=== PATIENT | female | born 1975 | race Caucasian/White ===

== ENCOUNTER 2021-01-26 12:14 | Emergency (ER) | payer OTHER, MEDICARE ==
[~2021-01-26] VITALS: Ht 157 cm; Wt 90.0 kg
[2021-01-26] MEDS ORDERED: METH-732 PO (12:28)
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
[2021-01-26] MEDS ORDERED: TETANUS,DIPTH,PERTUSS P/F (BOOSTRIX) 0.5 ML VIAL IM ONE (12:45)
[2021-01-26 14:51] VITALS: BP 125/81
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
== END 2021-01-26 14:51 | disposition home or self-care (01) ==
LOC: ER 12:14 → EDUNIT# 12:20 → ER 14:51
DX: S16.1XXA Strain of muscle, fascia and tendon at neck level, initial encounter (principal); Z23 Encounter for immunization; V89.2XXA Person injured in unspecified motor-vehicle accident, traffic, initial encounter
CPT/HCPCS: 70450; 71046; 72125; 73030; 73552; 84703; 90715

== ENCOUNTER 2021-10-13 13:21 | Inpatient (IN) | payer MEDICARE ==
[~2021-10-13] VITALS: Ht 157.5 cm; Wt 94.0 kg
[~2021-10-13 13:21] MED LIST: METH-732 PO
[2021-10-13] MEDS ORDERED: morphine INJ 10 MG/ML 1ML (SYR OR VIAL) IVP STA ×2 (13:43→14:18)
[2021-10-13] MEDS ORDERED: ONDANSETRON 4 MG/2 ML (SDV) Z0FRAN IVP ONE (13:45)
[2021-10-13] MEDS ORDERED: NS IV 1000 ML 1,000 ML IV SCH ×2 (13:45→16:30)
--- NOTE | 2021-10-13 13:47 | ED Abdominal Pain ---
General Chief Complaint: Abdominal/GI Problems Stated Complaint: STOMACH PAIN Nursing Triage Note: ARRIVED VIA AMB TO ROOM 03 WITH COMPLAINTS OF SUDDEN RIGHT LOWER ABD PAIN. PT MOANING. Source of Information: Patient Exam Limitations: No Limitations History of Present Illness Date Seen by Provider: Oct 13, 2021 Time Seen by Provider: 13:30 Initial Comments Patient is a 45-year-old female who presents to the emergency department today w ith a chief complaint of right mid abdominal pain. Onset suddenly at around 10 AM this morning. She states that it causes nausea and vomiting. She has not been able to hold anything down since the onset of pain. She did have 2 bowel movements today. Nonblack nonbloody. She has had previous cholecystectomy as well as hernia repair. She denies fevers or chills. No chest pain or shortness of breath. Nothing makes the pain any better movement makes the pain much worse. She denies dysuria, urgency or frequency. No abnormal vaginal discharge. Last menstrual cycle was August 13. She has known irregular cycles. She has not taken anything for the pain. Past medical history significant for hypercholesterolemia, GERD, thyroid disorder. All other review of systems reviewed and negative except as stated Timing/Duration: 1-3 Hours Severity/Quality: Severe, Sharp, Stabbing Location: RLQ Radiation: No Radiation Activities at Onset: None Modifying Factors: Worsens With Movement Associated Symptoms: Nausea/Vomiting, Swelling/Mass in Abdomen Allergies and Home Medications Allergies Coded Allergies: Sulfa (Sulfonamide Antibiotics) (Verified Allergy, Unknown, 01/26/21) lamotrigine (Verified Allergy, Unknown, 01/26/21) Patient Home Medication List Home Medication List Reviewed: Yes Methocarbamol (Methocarbamol) 750 Mg Tablet, 750 MG PO Q6-8HR PRN for PAIN- MODERATE (5-7) Prescribed by: GREG SHAW on 01/26/21 1228 Review of Systems Review of Systems Constitutional: see HPI EENTM: No Symptoms Reported Respiratory: No Symptoms Reported Cardiovascular: No Symptoms Reported Gastrointestinal: Abdomen Distended, Abdominal Pain; Denies Blood Streaked Stools; Nausea, Vomiting Genitourinary: No Symptoms Reported; Denies Burning, Denies Discharge, Denies Frequency, Denies Pain Musculoskeletal: no symptoms reported Skin: no symptoms reported Psychiatric/Neurological: No Symptoms Reported All Other Systems Reviewed Negative Unless Noted: Yes Past Xhxoxce-Igefnl-Ojnvsy Hx Patient Social History Smoking Status: Never a Smoker Substance use?: No Alcohol Use?: No Physical Exam Vital Signs Vital Signs - First Documented 10/13/21 13:21 Temp 36.3 Pulse 87 Resp 16 B/P (MAP) 139/86 (103) Capillary Refill : Less Than 3 Seconds Height/Weight/BMI Height: '" Weight: lbs. oz. kg; 36.00 BMI Method: General Appearance: WD/WN, moderate distress HEENT: PERRL/EOMI Neck: full range of motion Respiratory: lungs clear, normal breath sounds, no respiratory distress, no accessory muscle use Cardiovascular: regular rate, rhythm Gastrointestinal: soft, other (Patient has firm palpable mass approximately 10 cm in the right mid lower abdomen. Very very tender to palpation. I cannot hear bowel sounds when I auscultate over it. Rest of her abdomen is soft, bowel sounds are hypoactive. No rebound) Extremities: normal range of motion, non-tender, normal inspection, no pedal edema Back: CVA tenderness (R), CVA tenderness (L) Neurologic/Psychiatric: no motor/sensory deficits, alert, normal mood/affect, oriented x 3, other (anxious) Skin: normal color, warm/dry Focused Exam Lactate Level 10/13/21 14:20: Lactic Acid Level 5.29*H Lactic Acid Level Laboratory Tests Test 10/13/21 14:20 Lactic Acid Level 5.29 MMOL/L (0.50-2.00) *H Progress/Results/Core Measures Results/Orders Lab Results Laboratory Tests Test 10/13/21 13:30 10/13/21 14:20 Range/Units White Blood Count 15.9 H 4.3-11.0 10^3/uL Red Blood Count 5.32 H 3.80-5.11 10^6/uL Hemoglobin 16.4 H 11.5-16.0 g/dL Hematocrit 47 35-52 % Mean Corpuscular Volume 89 80-99 fL Mean Corpuscular Hemoglobin 31 25-34 pg Mean Corpuscular Hemoglobin Concent 35 32-36 g/dL Red Cell Distribution Width 12.3 10.0-14.5 % Platelet Count 318 130-400 10^3/uL Mean Platelet Volume 9.0 9.0-12.2 fL Immature Granulocyte % (Auto) 1 % Neutrophils (%) (Auto) 74 42-75 % Lymphocytes (%) (Auto) 17 12-44 % Monocytes (%) (Auto) 7 0-12 % Eosinophils (%) (Auto) 1 0-10 % Basophils (%) (Auto) 1 0-10 % Neutrophils # (Auto) 11.8 H 1.8-7.8 10^3/uL Lymphocytes # (Auto) 2.7 1.0-4.0 10^3/uL Monocytes # (Auto) 1.0 0.0-1.0 10^3/uL Eosinophils # (Auto) 0.1 0.0-0.3 10^3/uL Basophils # (Auto) 0.1 0.0-0.1 10^3/uL Immature Granulocyte # (Auto) 0.2 H 0.0-0.1 10^3/uL Neutrophils % (Manual) 78 % Lymphocytes % (Manual) 14 % Monocytes % (Manual) 8 % Eosinophils % (Manual) 0 % Basophils % (Manual) 0 % Band Neutrophils 0 % Blood Morphology Comment NORMAL Sodium Level 139 135-145 MMOL/L Potassium Level 3.4 L 3.6-5.0 MMOL/L Chloride Level 99 98-107 MMOL/L Carbon Dioxide Level 19 L 21-32 MMOL/L Anion Gap 21 H 5-14 MMOL/L Blood Urea Nitrogen 17 7-18 MG/DL Creatinine 0.75 0.60-1.30 MG/DL Estimat Glomerular Filtration Rate 101 BUN/Creatinine Ratio 23 Glucose Level 154 H 70-105 MG/DL Calcium Level 9.6 8.5-10.1 MG/DL Corrected Calcium 9.4 8.5-10.1 MG/DL Total Bilirubin 0.5 0.1-1.0 MG/DL Aspartate Amino Transf (AST/SGOT) 36 H 5-34 U/L Alanine Aminotransferase (ALT/SGPT) 77 H 0-55 U/L Alkaline Phosphatase 164 H 40-136 U/L Total Protein 7.7 6.4-8.2 GM/DL Albumin 4.2 3.2-4.5 GM/DL Serum Test, Qualitative NEGATIVE NEGATIVE Lactic Acid Level 5.29 *H 0.50-2.00 MMOL/L My Orders Orders - PACO BURK MD Ed Iv/Invasive Line Start (10/13/21 13:43) Cbc With Automated Diff (10/13/21 13:43) Comprehensive Metabolic Panel (10/13/21 13:43) Hcg,Qualitative Serum (10/13/21 13:43) Ns Iv 1000 Ml (Sodium Chloride 0.9%) (10/13/21 13:45) Morphine Injection (Morphine Injection (10/13/21 13:43) Ondansetron Injection (Zofran Injectio (10/13/21 13:45) Ct Abdomen/Pelvis W (10/13/21 13:43) Iohexol Injection (Omnipaque 350 Mg/Ml 1 (10/13/21 14:00) Received Contrast (Hold Metformin- Contr (10/13/21 14:00) Ns (Ivpb) (Sodium Chloride 0.9% Ivpb Bag (10/13/21 14:00) Lactic Acid Analyzer (10/13/21 13:51) Manual Differential (10/13/21 13:30) Morphine Injection (Morphine Injection (10/13/21 14:18) Medications Given in ED Current Medications Medications Dose Ordered Sig/Angelo Route Start Time Stop Time Status Last Admin Dose Admin Iohexol 100 ml ONCE ONCE IV 10/13/21 14:00 10/13/21 14:01 DC 10/13/21 14:42 100 ML Ondansetron HCl 8 mg ONCE ONCE IVP 10/13/21 13:45 10/13/21 13:46 DC 10/13/21 13:51 8 MG Sodium Chloride 100 ml ONCE ONCE IV 10/13/21 14:00 10/13/21 14:01 DC 10/13/21 14:43 80 ML Vital Signs/I&O 10/13/21 13:21 Temp 36.3 Pulse 87 Resp 16 B/P (MAP) 139/86 (103) Blood Pressure Mean: 103 Progress Progress Note #1: Time: 16:34 Progress Note Case was discussed with both Dr. PACHECO and Dr. Pereyra at Dr. PACHECO's request. Dr. PACHECO stated he would admit with medicine as a consult. Patient has been given several doses of IV morphine. She is also being given Zofran. She was able to tolerate and hold down her oral contrast. IV fluids have been running. I believe her lactic acid is elevated not secondary to sepsis but secondary to potential bowel ischemia. Antibiotics have been ordered. On reevaluation the patient is sitting up, still has pain in the right mid abdomen but it is not as intense as at presentation. She is not tachycardic, she is not hypotensive. We will admit her at Dr. Pereyra's request to the ICU overnight Progress Note #2: Time: 17:34 Progress Note Notified by Dr. Pereyra that the patient is a [facility] patient. I then called Dr. Jacques on for [facility] and advised her of the patient's condition and findings. She will see her. Patient at this time is already in the ICU Departure Communication (Admissions) Time/Spoke to Admitting Phy: 15:[address] pacheco Time/Spoke to Consulting Phy: 16:[address] Pereyra - would prefer NPO status; Admit overnight to ICU Impression Primary Impression: Incarcerated hernia of abdominal cavity Disposition: ADMITTED INPATIENT Condition: Stable Admissions Decision to Admit Reason: Admit from ER (General) Decision to Admit/Date: Oct 13, 2021 Time/Decision to Admit Time: 16:34 Departure-Patient Inst. Referrals: [facility] ([place]) Primary Care Physician PACO BURK MD Oct 13, 2021 13:47
[2021-10-13 13:50] LABS: BASOPHILS # (AUTO) 0.1 10^3/uL (0.0-0.1); BASOPHILS % (AUTO) 1 % (0-10); EOSINOPHILS # (AUTO) 0.1 10^3/uL (0.0-0.3); EOSINOPHILS % (AUTO) 1 % (0-10); HEMATOCRIT 47 % (35-52); HEMOGLOBIN 16.4 g/dL (11.5-16.0); LYMPHOCYTES # (AUTO) 2.7 10^3/uL (1.0-4.0); LYMPHOCYTES % (AUTO) 17 % (12-44); MEAN CORPUSCULAR HEMOGLOBIN 31 pg (25-34); MEAN CORPUSCULAR HGB CONC 35 g/dL (32-36); MEAN CORPUSCULAR VOLUME 89 fL (80-99); MONOCYTES % (AUTO) 7 % (0-12); NEUTROPHILS # (AUTO) 11.8 10^3/uL (1.8-7.8); NEUTROPHILS % (AUTO) 74 % (42-75); PLATELET COUNT 318 10^3/uL (130-400); WHITE BLOOD COUNT 15.9 10^3/uL (4.3-11.0)
[2021-10-13] MEDS ORDERED: IOHEXOL 350 MG/ML 100 ML (OMNIPAQUE 350) VIAL IV ONE (14:00)
[2021-10-13] MEDS ORDERED: NS 100 ML (IVPB) BAG IV ONE (14:00)
[2021-10-13] MEDS ORDERED: HOLD METFORMIN - RECEIVED CONTRAST 20 ML VIAL IV SCH (14:00)
[2021-10-13 14:05] LABS: ALBUMIN 4.2 GM/DL (3.2-4.5); BILIRUBIN,TOTAL 0.5 MG/DL (0.1-1.0); CALCIUM 9.6 MG/DL (8.5-10.1); CREATININE SERUM 0.75 MG/DL (0.60-1.30); POTASSIUM 3.4 MMOL/L (3.6-5.0); TOTAL PROTEIN 7.7 GM/DL (6.4-8.2)
[2021-10-13 14:15] LABS: NEUTROPHILS % (MANUAL) 78 %
[2021-10-13 14:16] LABS: BAND NEUTROPHILS 0 %; BASOPHILS % (MANUAL) 0 %; EOSINOPHILS % (MANUAL) 0 %; LYMPHOCYTES % (MANUAL) 14 %; MONOCYTES % (MANUAL) 8 %; RBC MORPH NORMAL
--- NOTE | 2021-10-13 14:59 | Diagnostic Imaging Report ---
EXAMINATION: CT abdomen and pelvis with intravenous contrast. TECHNIQUE: Multiple contiguous axial images were obtained through the abdomen and pelvis after the uneventful administration of intravenous contrast. All CT scans use one or more of the following dose optimizing techniques: automated exposure control, MA and/or KvP adjustment based on patient size and exam type or iterative reconstruction. HISTORY: Severe abdominal pain COMPARISON: None available. FINDINGS: Limited views of the lower thorax are unremarkable. Liver is steatotic. No focal liver lesions are seen. There is no biliary ductal dilation. Gallbladder is absent. Pancreas is normal. Spleen is normal. Adrenal glands are normal. The kidneys are normal. There is no hydronephrosis. Urinary bladder is normal. There is a bowel containing ventral abdominal hernia with stranding of herniated fat concerning for strangulation. There is mildly dilated upstream bowel and decompression of the distal bowel. No free fluid or air. No abdominal or pelvic lymphadenopathy. Aorta is normal in caliber without aneurysm. There are no suspicious osseus lesions. IMPRESSION: 1. Ventral abdominal hernia containing bowel with stranding in the hernia sac concerning for strangulation. There is also mild dilation of the upstream bowel concerning for developing obstruction. Dictated by: Dictated on workstation # [id number]
[2021-10-13] MEDS ORDERED: PIPERACILLIN SODIUM/TAZOBACTAM 4.5 GM in NS (IVPB) 100 ML IV ONE (16:15)
--- NOTE | 2021-10-13 17:03 | Tele-ICU Progress Note ---
Progress Note 45 y/o female admitted with an incarcerated, possibly starngulated ventral hernia WBC and lactate elevated Abdominal CT confirms hernia with bowel and fat stranding. To ICU for monitoring Surgery consult Focused Exam Lactate Level 10/13/21 14:20: Lactic Acid Level 5.29*H Height, Weight, BMI Height: '" Weight: lbs. oz. kg; 36.00 BMI Method: Lactic Acid Level Laboratory Tests Test 10/13/21 14:20 Lactic Acid Level 5.29 MMOL/L (0.50-2.00) *H Laboratory Tests 10/13/21 13:30 Labs Labs Laboratory Tests 10/13/21 13:30: White Blood Count 15.9H, Red Blood Count 5.32H, Hemoglobin 16.4H, Hematocrit 47, Mean Corpuscular Volume 89, Mean Corpuscular Hemoglobin 31, Mean Corpuscular Hemoglobin Concent 35, Red Cell Distribution Width 12.3, Platelet Count 318, Mean Platelet Volume 9.0, Immature Granulocyte % (Auto) 1, Neutrophils (%) (Auto) 74, Lymphocytes (%) (Auto) 17, Monocytes (%) (Auto) 7, Eosinophils (%) (Auto) 1, Basophils (%) (Auto) 1, Neutrophils # (Auto) 11.8H, Lymphocytes # (Auto) 2.7, Monocytes # (Auto) 1.0, Eosinophils # (Auto) 0.1, Basophils # (Auto) 0.1, Immature Granulocyte # (Auto) 0.2H, Neutrophils % (Manual) 78, Lymphocytes % (Manual) 14, Monocytes % (Manual) 8, Eosinophils % (Manual) 0, Basophils % (Manual) 0, Band Neutrophils 0, Blood Morphology Comment NORMAL, Sodium Level 139, Potassium Level 3.4L, Chloride Level 99, Carbon Dioxide Level 19L, Anion Gap 21H, Blood Urea Nitrogen 17, Creatinine 0.75, Estimat Glomerular Filtration Rate 101, BUN/Creatinine Ratio 23, Glucose Level 154H, Calcium Level 9.6, Corrected Calcium 9.4, Total Bilirubin 0.5, Aspartate Amino Transf (AST/SGOT) 36H, Alanine Aminotransferase (ALT/SGPT) 77H, Alkaline Phosphatase 164H, Total Protein 7.7, Albumin 4.2, Serum Test, Qualitative NEGATIVE 10/13/21 14:20: Lactic Acid Level 5.29*H Results/Procedures Labs Laboratory Tests 10/13/21 13:30 Patient resulted labs reviewed. ARIANA PATRICK MD Oct 13, 2021 17:03
[2021-10-13] MEDS ORDERED: morphine INJ 4 MG/ML 1 ML (VIAL/SYRINGE) IVP PRN (17:15)
[2021-10-13 17:20] VITALS: BP 118/84
[2021-10-13] MEDS ORDERED: LACTATED RINGERS 1,000 ML IV SCH (17:45)
[2021-10-13] MEDS ORDERED: FLUT16SP22 NS (18:23)
[2021-10-13] MEDS ORDERED: ATOR10TA66 PO (18:23)
[2021-10-13] MEDS ORDERED: LEVO100T7 PO (18:23)
[2021-10-13] MEDS ORDERED: CETI10TA17 PO (18:23)
[2021-10-13] MEDS ORDERED: OMEP40CA6 PO (18:23)
[2021-10-13] MEDS ORDERED: MULT-974 PO (18:24)
[2021-10-13] MEDS ORDERED: CHOL-11 PO (18:24)
[2021-10-13 19:24] VITALS: BP 111/66
[2021-10-13] MEDS ORDERED: RT-ALBUTEROL/IPRATROPIUM 3 ML (DUONEB) VIAL INH PRN (19:45)
[2021-10-13 20:25] LABS: BASOPHILS # (AUTO) 0.1 10^3/uL (0.0-0.1); BASOPHILS % (AUTO) 1 % (0-10); EOSINOPHILS % (AUTO) 0 % (0-10); HEMATOCRIT 43 % (35-52); HEMOGLOBIN 14.6 g/dL (11.5-16.0); LYMPHOCYTES # (AUTO) 1.7 10^3/uL (1.0-4.0); LYMPHOCYTES % (AUTO) 11 % (12-44); MEAN CORPUSCULAR HEMOGLOBIN 31 pg (25-34); MEAN CORPUSCULAR HGB CONC 34 g/dL (32-36); MEAN CORPUSCULAR VOLUME 90 fL (80-99); MEAN PLATELET VOLUME 8.8 fL (9.0-12.2); MONOCYTES % (AUTO) 6 % (0-12); NEUTROPHILS # (AUTO) 12.7 10^3/uL (1.8-7.8); NEUTROPHILS % (AUTO) 82 % (42-75); PLATELET COUNT 262 10^3/uL (130-400); WHITE BLOOD COUNT 15.5 10^3/uL (4.3-11.0)
--- NOTE | 2021-10-13 20:29 | Progress Note-Pre Operative ---
Pre-Operative Progress Note H&P Reviewed The H&P was reviewed, patient examined and no changes noted. Date Seen by Provider: Oct 13, 2021 Time Seen by Provider: :30 Date H&P Reviewed: Oct 13, 2021 Time H&P Reviewed: : Pre-Operative Diagnosis: incarcerated recurrent ventral abd incisional hernia SARAH WALSH MD Oct 13, 2021 20:29
[2021-10-13] MEDS: ONDANSETRON 4 MG/2 ML (SDV) Z0FRAN IVP PRN (20:42)
[2021-10-13] MEDS: morphine INJ 4 MG/ML 1 ML (VIAL/SYRINGE) IVP PRN (20:52)
[2021-10-13] MEDS: NS IV 1000 ML 1,000 ML IV SCH (20:57)
--- NOTE | 2021-10-13 21:33 | HISTORY AND PHYSICAL ---
DATE OF SERVICE: 10/13/2021 ATTENDING PRIMARY VENEER DRIER: Claudia Neri APRN HISTORY OF PRESENT ILLNESS: The patient is a 45-year-old female who presented to the Emergency Department with acute onset of pain in the mid abdomen right of midline. She states that she has had two hernias in the region before, which was repaired. Her last one was done several years ago and was repaired with mesh. The pain started this morning and it did cause her to have an episode of nausea and vomiting. She did have 2 bowel movements today as well. She does not report any red blood per rectum nor any dark tarry stools. A CT scan was performed, which showed a ventral abdominal hernia with bowel within the hernia sac. She does not report any fever, no chills. Her initial lactic acid was elevated; however, repeat did show a decrease from 5.29 to 2.75. Upon examination, she does have incarcerated hernia, which is tender to palpation. There is voluntary guarding, no rebound. There is no overlying redness or erythema of the skin. PAST MEDICAL HISTORY: Migraine headaches, history of stroke with no neurologic deficit 2014, hypercholesterolemia, gastroesophageal reflux disease. PAST SURGICAL HISTORY: Ventral abdominal hernia repair x2, section x3, laparoscopic cholecystectomy. ALLERGIES: SULFA, LAMOTRIGINE. MEDICATIONS: Aspirin 81 mg daily, atorvastatin 10 mg daily, cetirizine 10 mg daily, fluticasone spray 50 mcg daily, levothyroxine 100 mcg daily, omeprazole 40 mg daily. SOCIAL HISTORY: Negative smoke, negative alcohol. FAMILY HISTORY: Noncontributory. VITAL SIGNS: Temperature 36.3, blood pressure 111/66, pulse 99, respirations 16, pulse ox 95% on room air. REVIEW OF SYSTEMS: Well-nourished female currently guarded secondary to the abdominal pain. She is not experiencing any shortness of breath or difficulty breathing. No chest pain, palpitations, diaphoresis. Acute onset of pain starting this morning with associated episode of nausea and vomiting. No hematemesis, no coffee ground emesis. She has also had two bowel movements today. No fever, chills, no recent inadvertent weight loss. All other review of systems negative. PHYSICAL EXAMINATION: CHEST: Clear. Good breath sounds bilaterally. HEART: Regular, no murmurs. EXTREMITIES: No lower extremity edema, negative Homans sign. HEENT: No scleral icterus. NECK: No cervical lymphadenopathy. ABDOMEN: Soft. There is a palpable bulge consistent with a recurrent ventral abdominal incisional hernia, which is incarcerated, tender to palpation with voluntary guarding, no rebound. There is no overlying redness or erythema of the skin. SKIN: Warm, dry. ASSESSMENT AND PLAN: A 45-year-old female with incarcerated recurrent ventral abdominal incisional hernia. The natural history of hernias were explained to the patient as well as the risk for increasing size as well as worsening symptomatology. She is in full understanding of this and would like to proceed with an open recurrent ventral abdominal incisional hernia repair with mesh, which we will schedule. Job ID: [id number] DocumentID: [id number] Dictated Date: 10/13/2021 20:24:11 Therapist Occupational Date: 10/13/2021 21:33:37 Dictated By: SARAH WALSH MD
[2021-10-13] MEDS: HYDROcodone/APAP 7.5 MG/325 MG (LORTAB, LORCET PLUS) TABLET PO PRN (22:11)
[2021-10-13] MEDS: PIPERACILLIN SODIUM/TAZOBACTAM 4.5 GM in NS (IVPB) 100 ML IV SCH (23:51)
[2021-10-14] VITALS (7 sets, daily range): BP systolic 108–122; BP diastolic 67–83
[2021-10-14] MEDS: HYDROcodone/APAP 7.5 MG/325 MG (LORTAB, LORCET PLUS) TABLET PO PRN (02:10)
[2021-10-14] MEDS: NS IV 1000 ML 1,000 ML IV SCH (04:38)
[2021-10-14] MEDS: ONDANSETRON 4 MG/2 ML (SDV) Z0FRAN IVP PRN (04:54)
[2021-10-14] MEDS: morphine INJ 4 MG/ML 1 ML (VIAL/SYRINGE) IVP PRN ×2 (04:55→07:58)
[2021-10-14 05:05] LABS: BASOPHILS # (AUTO) 0.1 10^3/uL (0.0-0.1); BASOPHILS % (AUTO) 0 % (0-10); EOSINOPHILS # (AUTO) 0.1 10^3/uL (0.0-0.3); EOSINOPHILS % (AUTO) 0 % (0-10); HEMATOCRIT 42 % (35-52); HEMOGLOBIN 14.5 g/dL (11.5-16.0); LYMPHOCYTES # (AUTO) 1.5 10^3/uL (1.0-4.0); LYMPHOCYTES % (AUTO) 9 % (12-44); MEAN CORPUSCULAR HEMOGLOBIN 31 pg (25-34); MEAN CORPUSCULAR HGB CONC 35 g/dL (32-36); MEAN CORPUSCULAR VOLUME 90 fL (80-99); MONOCYTES # (AUTO) 1.4 10^3/uL (0.0-1.0); MONOCYTES % (AUTO) 9 % (0-12); NEUTROPHILS % (AUTO) 81 % (42-75); PLATELET COUNT 258 10^3/uL (130-400); WHITE BLOOD COUNT 16.1 10^3/uL (4.3-11.0)
--- NOTE | 2021-10-14 06:28 | Consultation - Hospitalist ---
HPI History of Present Illness: HPI/Chief Complaint Chief complaint: Incarcerated hernia History of present illness: This is a 45-year-old white female who presented to the ER with nausea and vomiting and had a palpable mass in her abdominal wall and was found to have an incarcerated hernia. Dr. WALSH performed repair on this and is currently in recovery. IV fluids given for elevated lactic acid from dehydration. Source: patient Exam Limitations: clinical condition Date Seen 10/14/21 Attending Physician Sparkle Walsh MD [facility] Referring Physician Date of Admission Oct 13, 2021 at 15:04 Home Medications & Allergies Home Medications Reviewed patient Home Medication Reconciliation performed by pharmacy medication reconciliations operations technician and/or nursing. Patients Allergies have been reviewed. Allergies Allergies Coded Allergies Sulfa (Sulfonamide Antibiotics) (Verified Allergy, Unknown, 01/26/21) lamotrigine (Verified Allergy, Unknown, 01/26/21) Past Bypjopb-Njwcxi-Hajink Hx Patient Social History Marrital Status: Employed/Student: employed Tobacco Use?: No Smoking Status: Never a Smoker Substance use?: No Alcohol Use?: No Pt feels they are or have been: No Immunizations Up To Date Tetanus Booster (TDap): More Than 5 Years Current Status status: No status: No Advance Directives: No Communicates: Verbally Primary Language: Libyan Preferred Spoken Language: Libyan Is interpretation needed?: No Sensory deficits: Vision impairment Implanted or [employer] D: None Review of Systems ROS-Unable to Obtain: In recovery Constitutional: see HPI EENTM: no symptoms reported Physical Exam Physical Exam Vital Signs Vital Signs - First Documented 10/13/21 10/13/21 10/13/21 13:21 16:55 21:53 Temp 36.3 Pulse 87 Resp 16 B/P (MAP) 139/86 (103) Pulse Ox 91 O2 Delivery Room Air O2 Flow Rate 2.00 Capillary Refill : Less Than 3 Seconds Height, Weight, BMI Height: '" Weight: lbs. oz. kg; 37.89 BMI Method: General Appearance: No Apparent Distress, WD/WN, Chronically ill, Other (Sedated from anesthesia) Respiratory: Lungs Clear, Normal Breath Sounds Cardiovascular: Regular Rate, Rhythm Results Results/Procedures Labs Laboratory Tests 10/13/21 13:30 10/13/21 20:02 10/14/21 04:37 Patient resulted labs reviewed. Assessment/Plan Assessment and Plan Assess & Plan/Chief Complaint Assessment: Incarcerated abdominal hernia status post repair Profound dehydration from nausea and vomiting Elevated lactic acid from hypovolemia Plan: Supportive care Pain control JAIMIE ACUNA DO October 14, 2021 06:28
[2021-10-14] MEDS ORDERED: PANTOPRAZOLE 40 MG (PROTONIX) VIAL IV SCH (07:00)
[2021-10-14] MEDS: PIPERACILLIN SODIUM/TAZOBACTAM 4.5 GM in NS (IVPB) 100 ML IV SCH ×2 (07:58→16:10)
[2021-10-14] MEDS ORDERED: NS IV 1000 ML 1,000 ML IV SCH (09:00)
[2021-10-14] MEDS ORDERED: SUCCINYLCHOLINE INJ 100 MG/5 ML SYR/VIAL ONE (09:09)
[2021-10-14] MEDS ORDERED: MIDAZOLAM 2 MG/2 ML (VERSED) VIAL ONE (09:09)
[2021-10-14] MEDS ORDERED: LIDOCAINE PF 2% 5 ML (XYLOCAINE) VIAL ONE (09:09)
[2021-10-14] MEDS ORDERED: ROCURONIUM 50 MG/5 ML (ZEMURON) VIAL IV ONE (09:09)
[2021-10-14] MEDS ORDERED: proPOfol 200 MG/20 ML (DIPRIVAN) VIAL IV ONE (09:09)
[2021-10-14] MEDS ORDERED: fentaNYL INJ 100 MCG/2 ML AMP ONE (09:09)
[2021-10-14] MEDS ORDERED: ONDANSETRON 4 MG/2 ML (SDV) Z0FRAN ONE (09:09)
--- NOTE | 2021-10-14 10:07 | Progress Note ---
Standard Progress Note Progress Notes/Assess & Plan Date Seen by a Provider: October 14, 2021 Time Seen by a Provider: 09:00 Progress/Assessment & Plan clinical status unchanged. still has some abd pain and incarcerated hernia. will proceed with open recurrent incisional hernia repair. Focused Exam Lactate Level 10/13/21 14:20: Lactic Acid Level 5.29*H 10/13/21 17:33: Lactic Acid Level 2.75*H 10/13/21 20:02: Lactic Acid Level 1.90 SARAH WALSH MD October 14, 2021 10:07
[2021-10-14] MEDS ORDERED: LIDOCAINE/EPI 2% 1:200,00 (XYLOCAINE) 20 ML VIAL ONE (10:13)
--- NOTE | 2021-10-14 10:21 | Tele-ICU Progress Note ---
Subjective Date Seen by a Provider: October 14, 2021 Time Seen by a Provider: 08:45 Subjective/Events-last exam This virtual visit was conducted using real time audio/video. Thank you for asking us to see this patient for incarcerated ventral hernia. PMH: Migraines, HL, GERD. SH: smoking history :N FH: Non-contributory ROS: as in HPI. No new complaints. PE: VSS. O2 sat 94% on RA. HEENT: No obvious masses, adenopathy or JVD. Chest: clear to auscultation. CV: RRR S1 S2 No murmur or added sounds. Abd: tender. Bowel sounds Y. : Unremarkable. Esp[employer]/psychiatric: Grossly intact. No obvious focal findings. Extremities: No edema. Capillary refill < 3 seconds. Skin: unremarkable. Results: Elevated WCC 16.1. Decreased K 3.4. Available chart/ vitals / labs / images reviewed. Video assessment done using teleICU camera, rest of exam as per RN. A/P: Critical Care: critically ill patient. Cont.Zosyn, PPI, PRN duonebs. To undergo surgery today. Discussed with RN Rama. Asked RN to reach out to eICU if any questions or concerns later. Time spent with patient/coordination of care with other health professionals (mins): 15 Sepsis Event Evaluation Height, Weight, BMI Height: '" Weight: lbs. oz. kg; 37.89 BMI Method: Focused Exam Lactate Level 10/13/21 14:20: Lactic Acid Level 5.29*H 10/13/21 17:33: Lactic Acid Level 2.75*H 10/13/21 20:02: Lactic Acid Level 1.90 Exam Exam Patient acknowledged, consented, and participated in this virtual visit which was conducted using real time audio/video Vital Signs Date Time Temp Pulse Resp B/P (MAP) Pulse Ox O2 Delivery O2 Flow Rate FiO2 10/14/21 09:00 98 19 113/70 92 Nasal Cannula 2.00 10/14/21 08:00 82 27 113/73 95 Nasal Cannula 2.00 10/14/21 07:59 36.7 10/14/21 07:18 Room Air 0.00 10/14/21 07:00 98 10/14/21 07:00 98 27 118/76 96 Nasal Cannula 2.00 10/14/21 06:00 84 17 118/67 94 Nasal Cannula 2.00 10/14/21 05:00 81 14 121/81 95 Nasal Cannula 2.00 10/14/21 04:00 99 Nasal Cannula 2.00 10/14/21 04:00 91 21 123/82 96 Nasal Cannula 2.00 10/14/21 03:00 84 15 128/69 98 Nasal Cannula 2.00 10/14/21 02:00 85 15 127/79 98 Nasal Cannula 2.00 10/14/21 01:00 92 22 132/92 98 Nasal Cannula 2.00 10/14/21 01:00 100 10/14/21 00:00 98 16 128/79 97 Nasal Cannula 2.00 10/13/21 23:59 99 Nasal Cannula 2.00 10/13/21 23:00 105 18 124/82 92 Nasal Cannula 2.00 10/13/21 22:00 102 16 140/84 94 Nasal Cannula 2.00 10/13/21 21:53 Nasal Cannula 2.00 10/13/21 21:00 97 13 147/86 95 Room Air 10/13/21 20:00 94 Room Air 10/13/21 20:00 90 15 146/89 95 Room Air 10/13/21 19:24 36.3 99 95 10/13/21 19:00 106 24 157/97 94 Room Air 10/13/21 19:00 102 10/13/21 18:00 99 111/66 91 Room Air 10/13/21 17:20 99 118/84 (95) 94 Room Air 10/13/21 17:08 104 10/13/21 17:00 105 123/74 95 Room Air 10/13/21 16:55 96 16 111/63 91 Room Air 10/13/21 13:21 36.3 87 16 139/86 (103) I & O 10/14/21 07:00 Intake Total 2100 ml Balance 2100 ml Height & Weight Height: '" Weight: lbs. oz. kg; 37.89 BMI Method: General Appearance: Obese Capillary Refill: Less Than 3 Seconds Peripheral Pulses: 2+ Dorsalis Pedis (R), 2+ Left Dors-Pedis (L) (See free text.) Gastrointestinal: soft, other (Patient has firm palpable mass approximately 10 cm in the right mid lower abdomen. Very very tender to palpation. I cannot hear bowel sounds when I auscultate over it. Rest of her abdomen is soft, bowel sounds are hypoactive. No rebound) Results Lab Laboratory Tests 10/13/21 13:30 10/13/21 20:02 10/14/21 04:37 Assessment/Plan Assessment/Plan See free text. Critical Care: Critically Ill Patient MARVIN HUERTAS MD October 14, 2021 10:20
[2021-10-14] MEDS: LACTATED RINGERS 1,000 ML IV PRN ×2 (10:30→11:00)
[2021-10-14] MEDS ORDERED: NEOSTIGMINE 3 MG/3 ML VIAL ONE (11:47)
[2021-10-14] MEDS ORDERED: GLYCOPYRROLATE 0.2 MG/ML (ROBINUL) 2 ML VIAL ONE (11:47)
--- NOTE | 2021-10-14 11:54 | Progress Note-Post Operative ---
Post-Operative Progess Note Surgeon (s)/Farm Operator (s) Surgeon SARAH WALSH MD Farm Operator: liliana patel ITINERANT TEACHER ASSISTANT Pre-Operative Diagnosis incarcerated recurrent ventral abd incisional hernia Post-Operative Diagnosis same, no strangulation. Procedure & Operative Findings Date of Procedure 10/14/21 Procedure Performed/Findings open recurrent incarcerated ventral abdominal incisional hernia repair with mesh. Anesthesia Type get Estimated Blood Loss Estimated blood loss (mL): minimal Specimens/Packing Specimens Removed none SARAH WALSH MD October 14, 2021 11:54
[2021-10-14] MEDS ORDERED: SEVOFLURANE (ULTANE) 15 ML INHAL SOLN ONE (12:00)
[2021-10-14] MEDS ORDERED: HYDR-3817 PO (12:10)
--- NOTE | 2021-10-14 12:10 | Discharge Inst-Surgical ---
D/C Lap Instructions-JILLIAN New, Converted, or Re-Newed RX: RX on Chart Follow Up Appt in 2 weeks Activity as tolerated No driving for 24 hours No driving while on pain medications Incentive Spirometry use every 2 hours while awake Regular Diet Symptoms to Report: Fever over 101 degree F, Nausea/Vomiting Infection Signs and Symptoms to report: Increased redness, Foul odor of wound, Increased drainage Bathing instructions: May shower Operative Area Clean/Dry; Keep incision clean/dry If any problems/questions: Contact your physician or go to Emergency Room SARAH WALSH MD October 14, 2021 12:10
[2021-10-14] MEDS ORDERED: MEPERIDINE (DEMEROL) INJ 50 MG/ML IVP ONE (12:30)
[2021-10-14] MEDS ORDERED: morphine INJ 10 MG/ML 1ML (SYR OR VIAL) IVP ONE (12:30)
[2021-10-14] MEDS ORDERED: PROMETHAZINE INJ 25 MG/ML (PHENERGAN) AMP IVP ONE (12:30)
[2021-10-14] MEDS ORDERED: ONDANSETRON 4 MG/2 ML (SDV) Z0FRAN IVP PRN (12:30)
[2021-10-14] MEDS ORDERED: KCL 20 MEQ TAB (K-DUR) PO SCH (15:15)
--- NOTE | 2021-10-14 19:13 | OPERATIVE REPORT ---
DATE OF SERVICE: 10/14/2021 ATTENDING SUPERVISOR IRRIGATION: Claudia Neri APRN PREOPERATIVE DIAGNOSIS: Incarcerated recurrent ventral abdominal incisional hernia. POSTOPERATIVE DIAGNOSIS: Incarcerated recurrent ventral abdominal incisional hernia with no strangulation identified. PROCEDURE: Open recurrent incarcerated ventral abdominal incisional hernia repair with mesh. SURGEON: Sarah Walsh MD AUTOMATIC CLIPPER: Ravi Garcia APRN ANESTHESIA: General endotracheal. ESTIMATED BLOOD LOSS: Minimal. FINDINGS: Omentum as well as small bowel and hernia sac, no signs of any ischemia. DISPOSITION: The patient tolerated the procedure well. INDICATIONS: The patient is a 45-year-old female who presented to the Emergency Department with acute onset of mid abdominal pain. She had reported two hernias before within that region, which were repaired with the last one done several years ago and repaired with mesh. She stated that the pain started in the morning and this also was followed by an episode of nausea and vomiting. She was able to have two bowel movements that day as well. CT scan was performed, which did show recurrent ventral abdominal incisional hernia, which was incarcerated. DESCRIPTION OF PROCEDURE: The patient was brought to the operating room, laid supine on the table. After adequate IV pain and sedative medications and general endotracheal intubation, the abdomen was prepped and draped in standard surgical fashion. A supraumbilical midline vertical skin incision was made using a 15 blade. The subcutaneous tissue was then dissected down using electrocautery. A large hernia sac was identified and completely dissected out using blunt dissection as well as electrocautery. We proceeded with dissection until the fascial base was identified. The hernia sac was then opened using Metzenbaum scissors. There was omentum as well as small bowel within the hernia sac. No signs of any strangulation with good perfusion. The hernia sac was then completely excised under direct visualization using electrocautery. Another smaller hernia inferior was also identified and these were too connected by opening the fascia with electrocautery. The entire defect was approximately 3.5 cm. An 8 cm round-coated polypropylene mesh was then placed into the defect and circumferentially sutured transfascially using interrupted 0 Prolene sutures. Good hemostasis was observed. Subcutaneous tissue was then reapproximated using 3-0 Vicryl interrupted sutures. Skin was closed using 4-0 Monocryl running subcuticular suture. Wound was then cleaned and covered with Dermabond, followed by tonsil sponges followed by 4 x 4 gauze followed by large Op-Site followed by an abdominal binder. The patient tolerated the procedure well. We will start a diet and when she is tolerating at least liquids, has good pain control with oral pain medications, ambulating well, we will discharge her home where she will be instructed to do no heavy lifting or exertion for the next two weeks. Job ID: [id number] DocumentID: [id number] Dictated Date: 10/14/2021 12:00:10 Roofing Applicator Date: 10/14/2021 19:12:12 Dictated By: SARAH WALSH MD
[2021-10-15] MEDS ORDERED: MAGNESIUM 1 GM/100 ML IVPB 100 ML IV SCH (06:00)
[2021-10-15] MEDS ORDERED: POTASSIUM CL 10MEQ/50ML IVPB 50 ML IV SCH (06:00)
--- NOTE | 2021-10-15 13:28 | Anesthesia-General Post-Op ---
General Patient Condition Mental Status/LOC: Same as Preop Cardiovascular: Satisfactory Nausea/Vomiting: Absent Respiratory: Satisfactory Pain: Controlled Complications: Absent Post Op Complications Complications None Follow Up Care/Instructions Patient Instructions None needed. Anesthesia/Patient Condition Patient Condition Patient is doing well, no complaints, stable vital signs, no apparent adverse anesthesia problems. No complications reported per nursing. ROLO JAMES CRNA October 15, 2021 13:28
== END 2021-10-14 17:45 | disposition home or self-care (01) | DRG 355 ==
LOC: ER 13:21 → ICU 15:04
PROVIDERS: ADMIT Surgery; ATTEND Surgery
PROC: 0WUF0JZ Supplement Abdominal Wall with Synthetic Substitute, Open Approach (ICD-10-PCS; principal; 2021-10-14 10:30)
DX: K43.0 Incisional hernia with obstruction, without gangrene (principal); E86.0 Dehydration; E86.1 Hypovolemia; E78.00 Pure hypercholesterolemia, unspecified; E78.5 Hyperlipidemia, unspecified; K21.9 Gastro-esophageal reflux disease without esophagitis; E07.9 Disorder of thyroid, unspecified; Z88.2 Allergy status to sulfonamides; Z88.8 Allergy status to other drugs, medicaments and biological substances; Z79.82 Long term (current) use of aspirin
CPT/HCPCS: 36415; 74177; 80053; 83605; 84703; 85007; 85025; 85027; 87081